=== PATIENT | female | born 2000 | race African-American/Black ===

== ENCOUNTER 2019-12-16 09:46 | Emergency (ER) | payer SELFPAY ==
[~2019-12-16] VITALS: Ht 172.7 cm; Wt 119.6 kg
[2019-12-16 09:52] VITALS: BP 128/74; TEMP 97
[2019-12-16] MEDS ORDERED: ZITHROMAX Z PA250 MG PO (10:28)
[2019-12-16 11:00] VITALS: PULSE 88
== END 2019-12-16 11:00 | disposition home or self-care (01) ==
LOC: COL.ER 09:46
DX: J20.9 Acute bronchitis, unspecified (principal); J01.90 Acute sinusitis, unspecified; F17.290 Nicotine dependence, other tobacco product, uncomplicated; Z88.0 Allergy status to penicillin

== ENCOUNTER 2020-05-27 16:36 | Emergency (ER) | payer OTHER ==
[~2020-05-27] VITALS: Ht 172.7 cm; Wt 127.3 kg
[~2020-05-27 16:36] MED LIST: ZITHROMAX Z PA250 MG PO
[2020-05-27 16:41] VITALS: TEMP 98
[2020-05-27] MEDS ORDERED: FLEXERIL 1010 MG/TAB PO (17:43)
[2020-05-27 17:50] VITALS: BP 121/76; PULSE 90
== END 2020-05-27 17:50 | disposition home or self-care (01) ==
LOC: COL.ER 16:36
DX: M54.6 Pain in thoracic spine (principal); R05 Cough; F17.290 Nicotine dependence, other tobacco product, uncomplicated; Z88.0 Allergy status to penicillin

== ENCOUNTER 2020-06-29 13:52 | Emergency (ER) | payer OTHER ==
[~2020-06-29] VITALS: Ht 172.7 cm; Wt 127.3 kg
[~2020-06-29 13:52] MED LIST changes: +FLEXERIL 1010 MG/TAB PO
[2020-06-29 14:07] VITALS: PULSE 99; TEMP 99.7
[2020-06-29 15:40] VITALS: BP 123/78
== END 2020-06-29 15:40 | disposition home or self-care (01) ==
LOC: COL.ER 13:52
DX: B34.9 Viral infection, unspecified (principal); F17.290 Nicotine dependence, other tobacco product, uncomplicated; Z20.828 Contact with and (suspected) exposure to other viral communicable diseases; Z88.0 Allergy status to penicillin

== ENCOUNTER 2020-11-16 00:01 | Emergency (ER) | payer SELFPAY ==
[~2020-11-16] VITALS: Ht 172.7 cm; Wt 127.3 kg
[2020-11-16 00:22] VITALS: TEMP 97.8
[2020-11-16 01:50] VITALS: BP 122/87; PULSE 88
== END 2020-11-16 01:50 | disposition home or self-care (01) ==
LOC: COL.ER 00:01
DX: N93.8 Other specified abnormal uterine and vaginal bleeding (principal); F17.290 Nicotine dependence, other tobacco product, uncomplicated; Z32.02 Encounter for pregnancy test, result negative; Z88.0 Allergy status to penicillin

== ENCOUNTER 2021-01-04 12:10 | Emergency (ER) | payer SELFPAY ==
[~2021-01-04] VITALS: Ht 172.7 cm; Wt 127.3 kg
[2021-01-04 12:15] VITALS: BP 122/81; TEMP 98.1
[2021-01-04 13:12] VITALS: PULSE 75
== END 2021-01-04 13:12 | disposition home or self-care (01) ==
LOC: COL.ER 12:10
DX: N92.6 Irregular menstruation, unspecified (principal); F17.290 Nicotine dependence, other tobacco product, uncomplicated; Z32.02 Encounter for pregnancy test, result negative; Z88.0 Allergy status to penicillin

== ENCOUNTER 2021-01-23 14:58 | Emergency (ER) | payer SELFPAY ==
[~2021-01-23] VITALS: Ht 172.7 cm; Wt 127.3 kg
[2021-01-23 15:17] VITALS: BP 133/83; TEMP 99.7
[2021-01-23 15:57] VITALS: PULSE 84
== END 2021-01-23 15:58 | disposition home or self-care (01) ==
LOC: COL.ER 14:58
DX: J06.9 Acute upper respiratory infection, unspecified (principal); Z88.0 Allergy status to penicillin

== ENCOUNTER 2021-04-28 01:32 | Emergency (ER) | payer SELFPAY ==
[~2021-04-28] VITALS: Ht 172.7 cm; Wt 127.3 kg
[2021-04-28 02:47] LABS: BASO % 0.4 % (0.0-2.0); EOS # 0.2 (0.0-0.7); EOS % 2.1 % (0-4.0); GRAN # 4.5 (1.4-6.5); GRAN % 62.8 % (42.2-75.2); HEMOGLOBIN 13.4 g/dl (12.5-16.0); LYMPH % 28.3 % (20.0-51.0); MEAN CELL VOLUME 89 fl (80.0-100.0); MEAN CORPUSCULAR HEMOGLOBIN 29 pg (27.0-31.0); MEAN CORPUSCULAR HGB CONC 33 g/dl (33.0-37.0); MONO # 0.4 (0.1-0.6); MONO % 6.1 % (1.7-9.3); PLATELET COUNT 270 K/mm3 (130-400); RED BLOOD COUNT 4.63 M/mm3 (4.10-5.30); REDCELL DISTRIBUTION WIDTH-CV 13.9 % (11.5-14.5)
[2021-04-28 03:00] LABS: ALBUMIN 4.2 gm/dL (3.5-5.0); BILIRUBIN,TOTAL 0.3 mg/dL (0.0-1.0); CALCIUM 9.9 mg/dL (8.4-10.2); CREATININE, serum 0.69 (0.52-1.25); TOTAL PROTEIN 7.7 gm/dL (6.4-8.2)
[2021-04-28 03:34] VITALS: BP 131/79; PULSE 82; TEMP 98.1
== END 2021-04-28 03:34 | disposition home or self-care (01) ==
LOC: COL.ER 01:32
PROVIDERS: Personal Emergency Response Attendant
DX: O03.9 Complete or unspecified spontaneous abortion without complication (principal)

== ENCOUNTER 2021-10-17 12:13 | Emergency (ER) | payer OTHER ==
[~2021-10-17] VITALS: Ht 172.7 cm; Wt 127.3 kg
[2021-10-17 13:10] VITALS: TEMP 98.5
[2021-10-17 13:50] VITALS: BP 125/84; PULSE 83
== END 2021-10-17 14:00 | disposition home or self-care (01) ==
LOC: COL.ER 12:13
DX: B34.9 Viral infection, unspecified (principal); Z20.822 Contact with and (suspected) exposure to COVID-19

== ENCOUNTER 2022-01-24 03:47 | Emergency (ER) | payer OTHER ==
[~2022-01-24] VITALS: Ht 170.2 cm; Wt 136.4 kg
[2022-01-24 03:48] VITALS: TEMP 98.3
[2022-01-24 04:45] VITALS: BP 131/101; PULSE 98
== END 2022-01-24 04:45 | disposition home or self-care (01) ==
LOC: COL.ER 03:47
DX: S40.011A Contusion of right shoulder, initial encounter (principal); S60.211A Contusion of right wrist, initial encounter; Y04.0XXA Assault by unarmed brawl or fight, initial encounter

== ENCOUNTER 2022-06-24 11:17 | Emergency (ER) | payer BC ==
[~2022-06-24] VITALS: Ht 172.7 cm; Wt 131.8 kg
[2022-06-24 11:23] VITALS: BP 136/84; PULSE 82; TEMP 98.1
[2022-06-24 12:07] LABS: COLLECTION METHOD CLEAN CATCH
[2022-06-24 12:14] LABS: BASO % 0.4 % (0.0-2.0); EOS # 0.1 K/mm3 (0.0-0.7); EOS % 1.3 % (0.0-4.0); GRAN # 2.3 K/mm3 (1.4-6.5); GRAN % 48.7 % (42.2-75.2); HEMATOCRIT 39.8 % (37.0-47.0); HEMOGLOBIN 13.5 g/dl (12.5-16.0); LYMPH % 41.8 % (20.0-51.0); MEAN CELL VOLUME 92 fl (80.0-100.0); MEAN CORPUSCULAR HEMOGLOBIN 31 pg (27-31); MEAN CORPUSCULAR HGB CONC 34 g/dl (33.0-37.0); MONO # 0.4 K/mm3 (0.1-0.6); MONO % 7.6 % (1.7-9.3); PLATELET COUNT 285 K/mm3 (130-400); RED BLOOD COUNT 4.33 M/mm3 (4.10-5.30); REDCELL DISTRIBUTION WIDTH-CV 13.5 % (11.5-14.5)
[2022-06-24 12:29] LABS: ALBUMIN 3.6 gm/dL (3.5-5.0); BILIRUBIN,TOTAL 0.7 mg/dL (0.2-1.2); CALCIUM 9.5 mg/dL (8.4-10.2); CREATININE, serum 0.84 mg/dL (0.57-1.11); POTASSIUM 3.6 mmol/L (3.5-4.5); TOTAL PROTEIN 7.2 gm/dL (6.2-8.1)
[2022-06-24 12:38] LABS: MUCOUS Present (NOT PRESENT); URINE APPEARANCE Clear (CLEAR/HAZY); URINE BACTERIA Rare /hpf (NONE SEEN); URINE COLOR Yellow (YELLOW); URINE RBC 0-2 /hpf (0-2)
[2022-06-24 12:39] LABS: URINE BLOOD 2+ (NEGATIVE); URINE GLUCOSE Negative (NEGATIVE); URINE KETONE Negative (NEGATIVE); URINE NITRATE Negative (NEGATIVE); URINE PROTEIN(semi-quant) Negative (NEGATIVE); URINE UROBILINOGEN 0.2 E.U/dL (0.2-1.0)
== END 2022-06-24 14:25 | disposition home or self-care (01) ==
LOC: COL.ER 11:17
PROVIDERS: Emergency Medicine
DX: H53.9 Unspecified visual disturbance (principal); Z28.311 Partially vaccinated for COVID-19